=== PATIENT | female | born 1985 | race Caucasian/White ===

== ENCOUNTER 2018-12-15 05:36 | Inpatient (IN) | payer BC ==
[~2018-12-15] VITALS: Ht 160 cm; Wt 137.0 kg
[~2018-12-15 05:36] MED LIST: AZIT1PAC21 PO; AZIT500T47 PO; CALC-515 PO; IBU600 PO; IBUP800T37 PO; LOR5/325 PO; METR250 PO; PNV1TABL92 PO; [UNRECOGNIZED DRUG - CODE] PO
[2018-12-15] MEDS ORDERED: LR(*) 1000 ML BAG 1,000 ML IV PRN (05:37)
[2018-12-15] MEDS ORDERED: OXYTOCIN 30 UNIT/D5LR 500 ML 500 ML IV PRN ×3 (05:37→09:35)
[2018-12-15] MEDS ORDERED: FAMOTIDINE(*) 20MG/50ML PREMIX 50 ML IVPB PRN (05:37)
[2018-12-15] MEDS ORDERED: LIDOCAINE/SOD BICARB 8.4% SYR SC PRN (05:40)
[2018-12-15] MEDS ORDERED: cefOXitin/DEX(*) 2GM/50ML PREM 50 ML IVPB PRN (05:40)
[2018-12-15] MEDS ORDERED: fentaNYL CITR 100 MCG/2 ML AMP IVP PRN (05:40)
[2018-12-15] MEDS ORDERED: METOCLOPRAMIDE 10 MG/2 ML SDV IVP PRN (05:40)
[2018-12-15] MEDS ORDERED: LIDOCAINE 1% LOCAL 300 MG/30ML INJ PRN (05:40)
[2018-12-15] MEDS ORDERED: TERBUTALINE SULF 1 MG/ML VIAL SUBQ PRN (05:40)
[2018-12-15 06:00] VITALS: BP 118/84; Ht 160 cm; Wt 137.0 kg
[2018-12-15 06:52] LABS: PLATELET COUNT, AUTOMATED 158 K/uL (150-450)
[2018-12-15] MEDS ORDERED: BUPIVACAINE 0.5% INJ 30ML VIAL EPI PRN (06:55)
[2018-12-15] MEDS ORDERED: BUPIVACAINE 0.25% MPF INJ EPI PRN (06:55)
[2018-12-15] MEDS ORDERED: LIDOCAINE/PF 2% 200MG/10ML AMP 200 MG/10 ML AMPUL EPI PRN (06:55)
[2018-12-15] MEDS ORDERED: FENTANYL/ROPIVACAINE 100 ML BAG EPI PRN (06:55)
[2018-12-15] MEDS ORDERED: LIDO/EPI 2% MPF 1:200,000 20ML EPI PRN (06:55)
[2018-12-15] MEDS ORDERED: fentaNYL CITR 100 MCG/2 ML AMP IT PRN (06:55)
--- NOTE | 2018-12-15 07:30 | History & Physical ---
History of Present Illness Age of Patient: 33 : 4 Para or TPAL: 2 EDC per LMP: January 05, 2019 Estimated Gestational Age: 37.0 Chief Complaint IOL History of Present Illness Presents for IOL at early term secondary to gestational hypertension. History of pre-eclampsia in prior . also complicated by obesity and asthma. U/S showed baby in 80%ile on 11/15/18 and 57%ile on 12/13. Her cx is favorable at 5 cm on last exam. Past Medical, Surgical, Family and Obstetric Histories reviewed. Please see ACOG chart. History Allergies: Coded Allergies: No Known Drug Allergies (Verified , 08/12/08) Med Rec Home Meds Active Scripts Ibuprofen (IBUPROFEN) 800 Mg Tablet, 800 MG PO Q8H PRN for PAIN, #30 TAB 0 Refills Prov:SYLWIA IZQUIERDO MD 07/29/17 Hydrocodone Bit/Acetaminophen (HYDROCODON-ACETAMINOPHEN 5-325) 1 Each Tablet, 1- 2 EACH PO Q4H PRN for PAIN, #20 TAB 0 Refills Prov:SYLWIA IZQUIERDO MD 07/29/17 Reported Medications Calcium Carbonate (TUMS) 200 Mg Tab.chew, 200 MG PO, TAB.CHEW 07/28/17 Review of Systems All Systems Reviewed/Normal: Yes, Except as Noted Exam General Exam Vital Signs Vital Signs Date Time Temp Pulse Resp B/P (MAP) Pulse Ox O2 Delivery O2 Flow Rate FiO2 12/15/18 06:00 97.2 92 17 118/84 (95) 94 Room Air General Apperance: Alert/Awake/No Acute Distress Neuro: No Gross deficits Eyes: Normal Extraocular Movement & Vison Respiratory: No Respiratory Distress Abdomen: Soft, Non-Tender, Non-Distended Extremities: No Cyanosis,Clubbing or Edema Integumentary: Skin Intact without Lesions or Rash Psychological: Alert & Oriented X3 Cervical Dialation: 6 Cervical Consistency: Soft Cervical Position: Anterior Presentation: Vertex Fetus Heart Tone Variabilty: Moderate FHT Accelerations: 15X15 FHT Category: I Medical Decision Making Data Points Result Diagram: 12/15/1864412/15/18644 VTE Prophylasis: Adult Pharmacological Contraindicati: Pt at Low Risk for VTE Mechanical Contraindications: Pt at Low Risk for VTE Assessment and Plan 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 Planning on . Monitor pressures. SYLWIA IZQUIERDO MD December 15, 2018 07:30
[2018-12-15] MEDS ORDERED: PREN-127 PO (08:01)
[2018-12-15] MEDS ORDERED: ALB6.7R INH (08:01)
--- NOTE | 2018-12-15 09:33 | Labor Progress Note ---
Labor Subjective Progress Notes Subjective Doing well. Pitocin at 6 cm and feeling contractions now. 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 (2) Gestational hypertension w/o significant proteinuria in 3rd trimester SYLWIA IZQUIERDO MD December 15, 2018 09:33
--- NOTE | 2018-12-15 10:21 | OB Delivery Note ---
Delivery Note Vaginal Delivery Type: Spont. Vaginal Delivery Delivery Date: December 15, 2018 Delivery Time: 10:03 Estimated Gestational Age(wks): 37.0 Infant Sex: Male Apgars: 1 Minute (8), 5 Minute (10) Repair Needed: Laceration, 2nd Degree Estimated Blood Loss: 300 Delivery Complications: Laceration Notes: Presented for IOL. Progressed from 6 cm on admission with Pitocin induction to complete at 1000. Delivery over second degree laceration with maternal pushing and no manipulation required. Placenta spontaneous and intact. Repair with 2-0 Chromic without complication. Bathing Suit Maker in Attendence: No Copies to: SYLWIA IZQUIERDO MD ; SYLWIA IZQUIERDO MD December 15, 2018 10:21
[2018-12-15] MEDS ORDERED: APAP/HYDROCODONE 325/5 TAB PO PRN (10:25)
[2018-12-15] MEDS ORDERED: HYDROCORTISONE 2.5% CR 30GM TB PR PRN (10:25)
[2018-12-15] MEDS ORDERED: MAGNESIUM HYDROXIDE* 30ML UDCP PO PRN (10:25)
[2018-12-15] MEDS ORDERED: GLYCERIN/WITCH HAZEL LEAF 1 PK TP PRN (10:25)
[2018-12-15] MEDS ORDERED: LANOLIN OINT 7 GM TUBE TP PRN (10:25)
[2018-12-15] MEDS ORDERED: ACETAMINOPHEN 325 MG TAB PO PRN (10:25)
[2018-12-15] MEDS ORDERED: BENZOCAINE 20% 60 ML BTL TP PRN (10:25)
[2018-12-15] MEDS ORDERED: LIDOCAINE 1% LOCAL 300 MG/30ML 30 ML ONE (10:55)
[2018-12-15] MEDS: IBUPROFEN 800 MG TAB PO SCH ×3 (10:57→19:13)
[2018-12-15 15:59] VITALS: BP 149/87
[2018-12-15] MEDS ORDERED: NIFEdipine 10 MG CAP PO SCH (16:30)
[2018-12-15 19:15] VITALS: BP 132/97
[2018-12-15] MEDS: DOCUSATE CALCIUM 240 MG CAP PO SCH (20:20)
[2018-12-15 23:08] VITALS: BP 159/82
[2018-12-15 23:12] VITALS: BP 151/71
[2018-12-16 03:29] VITALS: BP 129/79
[2018-12-16] MEDS: IBUPROFEN 800 MG TAB PO SCH ×2 (03:33→10:38)
[2018-12-16 07:25] VITALS: BP 139/82
--- NOTE | 2018-12-16 08:27 | OB/GYN Progress Note ---
OB Subjective Progress Notes Subjective Feeling well. Bleeding minimal and up to BR well. No problems. Wants to go home. GI: NEG Nausea : Voiding Well Pain: Mild OB Objective Physical Exam Vital Signs Date Time Temp Pulse Resp B/P (MAP) Pulse Ox O2 Delivery O2 Flow Rate FiO2 12/16/18 07:25 97.7 68 18 139/82 (101) 95 Room Air Intake and Output 12/16/18 07:00 Intake Total 1160 ml Balance 1160 ml Intake Oral 360 ml IV Total 800 ml # Voids 3 General Appearance: Alert/Awake/No Acute Distress Neurological: No Gross deficits Eyes: Normal Extraocular Movement & Vison Cardiovascular: Normal Rhythm & Peripheral Pulses, Regular Rate and Rhythm Respiratory: No Respiratory Distress, Clear to Auscultation Extremities: No Cyanosis,Clubbing or Edema Integumentary: Skin Intact without Lesions or Rash Psychological: Alert & Oriented X3, Appropriate Mood & Affect Result Diagram: 12/16/18 0613 12/15/18 0645 Assessment and Plan CVT RN Plan: Routine Post- Care, Discharge Home Today Problems: (1) 37 weeks gestation of (2) Gestational hypertension w/o significant proteinuria in 3rd trimester (3) care and examination immediately after delivery Assessment & Plan: Reviewed discharge instructions. Home later today. Call for problems. f/u at 6 weeks. SYLWIA IZQUIERDO MD December 16, 2018 08:27
[2018-12-16] MEDS ORDERED: IBUP800T37 PO (08:28)
--- NOTE | 2018-12-16 08:30 | OB/GYN Discharge Summary ---
Discharge Summary Reason for Hosp/Final Diag: (1) 37 weeks gestation of (2) Gestational hypertension w/o significant proteinuria in 3rd trimester (3) care and examination immediately after delivery Hospital Course & Plan: Reviewed discharge instructions. Home later today. Call for problems. f/u at 6 weeks. Lates Vital Signs Vital Signs Date Time Temp Pulse Resp B/P (MAP) Pulse Ox O2 Delivery O2 Flow Rate FiO2 12/16/18 07:25 97.7 68 18 139/82 (101) 95 Room Air Weight (Pounds): 302 Result Diagram: 12/16/1813 12/15/1845 Condition: Improved Discharge: Home, Self Longterm Meds Reported Medications Albuterol Sulfate (PROVENTIL HFA) 6.7 Gm Inh, 1-2 PUFF INH 3-4XD, INH 12/15/18 Vits W-Ca,Fe,Fa(<1MG) ( VITAMINS) 1 Each Tablet, 1 EACH PO DAILY, TAB 12/15/18 Calcium Carbonate (TUMS) 200 Mg Tab.chew, 200 MG PO, TAB.CHEW 07/28/17 Discontinued Scripts Ibuprofen (IBUPROFEN) 800 Mg Tablet, 800 MG PO Q8H PRN for PAIN, #30 TAB 0 Refills Prov:SYLWIA HILARIO MD 07/29/17 Hydrocodone Bit/Acetaminophen (HYDROCODON-ACETAMINOPHEN 5-325) 1 Each Tablet, 1- 2 EACH PO Q4H PRN for PAIN, #20 TAB 0 Refills Prov:SYLWIA HILARIO MD 07/29/17 Follow up Referrals: 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 Hilario [phone] Follow up in: 6 wks PP or PO Discharge Diet: As Tolerates Discharge Activity: As Tolerates, No Heavy Lifting x 6 wks, No Heavy Lifting > 10lb, Pelvic Rest Copies to: SYLWIA HILARIO MD ; SYLWIA HILARIO MD December 16, 2018 08:30
[2018-12-16] MEDS: DOCUSATE CALCIUM 240 MG CAP PO SCH (08:54)
[2018-12-16] MEDS ORDERED: INFLUENZA VIRUS VAC 0.5ML SYR IM ONLY ONE (10:25)
[2018-12-16] MEDS ORDERED: MEASLES,MUMP,RUBELLA VAC 0.5ML SUBQ ONE (10:25)
[2018-12-16] MEDS ORDERED: DIPHTH/TETANUS/ACEL. PERTUSSIS IM ONLY ONE (10:25)
== END 2018-12-16 15:00 | disposition home or self-care (01) | DRG 807 ==
LOC: OB 05:36
PROVIDERS: ADMIT Obstetrics & Gynecology; ATTEND Obstetrics & Gynecology
PROC: 10E0XZZ Delivery of Products of Conception, External Approach (ICD-10-PCS; principal; 2018-12-15)
PROC: 0KQM0ZZ Repair Perineum Muscle, Open Approach (ICD-10-PCS; 2018-12-15)
PROC: 10907ZC Drainage of Amniotic Fluid, Therapeutic from Products of Conception, Via Natural or Artificial Opening (ICD-10-PCS; 2018-12-15)
DX: O13.4 Gestational [pregnancy-induced] hypertension without significant proteinuria, complicating childbirth (principal); Z37.0 Single live birth; O99.214 Obesity complicating childbirth; O99.52 Diseases of the respiratory system complicating childbirth; E66.9 Obesity, unspecified; J45.909 Unspecified asthma, uncomplicated; O70.1 Second degree perineal laceration during delivery; Z3A.37 37 weeks gestation of pregnancy
CPT/HCPCS: 36415; 81001; 82040; 82247; 82310; 82374; 82435; 82565; 82570; 82947; 83615; 84075; 84132; 84155; 84156; 84295; 84450; 84460; 84520; 85025; 85027; 86703; 86850; 86900; 86901; J2001; J2590; J7120